=== PATIENT | female | born 1955 | race Caucasian/White ===

== ENCOUNTER → 2016-12-19 | Outpatient (CLI) | payer BC ==
[2016-12-19 17:04] LABS: BILIRUBIN,URINE NEGATIVE (NEG); CLARITY,URINE CLEAR (CLEAR); GLUCOSE, URINE (UA) NEGATIVE (NEG); LEUKOCYTE ESTERASE ,URINE MODERATE (NEG); NITRATE,URINE NEGATIVE (NEG); OCCULT BLOOD,URINE LARGE (NEG); PH,URINE 6.5 (5.0-8.5); PROTEIN,URINE 30 mg/dl (NEG); UROBILINOGEN,URINE 0.2 mg/dL (0.2)
[2016-12-19 17:22] LABS: BACTERIA,URINE FEW; RBC,URINE 20-30 /hpf; SQUAMOUS EPITHELIAL CELL,UR RARE; URINE SAMPLE TYPE CLEAN CATCH URINE; WBC,URINE 20-30
== END ==
LOC: MOB LAB 15:46
PROVIDERS: ATTEND Internal Medicine
DX: N39.0 Urinary tract infection, site not specified (principal)
CPT/HCPCS: 81001; 87088

== ENCOUNTER → 2016-12-21 | Outpatient (CLI) | payer BC ==
[2016-12-21 14:04] LABS: BLOOD UREA NITROGEN 17 mg/dL (7-22); BUN/CREATININE RATIO 18.88 (6-20); CALCIUM 9.6 mg/dL (8.7-10.7); CHLORIDE 106 meq/L (98-112); CREATININE 0.9 mg/dL (0.50-1.20); EST GLOMERULAR FILTRATION > 60 (>60 ml/min/1.73m(2)); GLUCOSE 105 mg/dL (78-110); POTASSIUM 4.3 meq/L (3.8-5.2); SODIUM 138 meq/L (135-145)
== END ==
LOC: LAB 13:38
PROVIDERS: ATTEND Internal Medicine
DX: E83.39 Other disorders of phosphorus metabolism (principal)
CPT/HCPCS: 36415; 80048; 84100

== ENCOUNTER → 2017-04-13 | Outpatient (CLI) | payer BC ==
[2017-04-13 12:12] LABS: BLOOD UREA NITROGEN 15 mg/dL (7-22); BUN/CREATININE RATIO 18.75 (6-20); CALCIUM 9.9 mg/dL (8.7-10.7); EST GLOMERULAR FILTRATION > 60 (>60 ml/min/1.73m(2))
== END ==
LOC: LAB 10:39
PROVIDERS: ATTEND Internal Medicine
DX: M81.0 Age-related osteoporosis without current pathological fracture (principal)
CPT/HCPCS: 36415; 80048; 83735; 84100

== ENCOUNTER → 2017-06-07 | Outpatient (CLI) | payer BC ==
--- NOTE | 2017-06-07 11:06 | DI ---
History: Status post right lumpectomy and radiation therapy for breast cancer Comparison: September 26, 2016. Findings: Moderate fibroglandular tissue bilaterally Scarring in the upper outer quadrant of the right breast consistent with patient's surgical history, and unchanged as compared with 2016 No dominant densities are formed lesions Minimal amount of scattered benign-appearing microcalcifications bilaterally, unchanged No skin thickening or nipple retraction No significant changes compared with the mammogram of September 26, 2016 Impression Direct 2, benign findings
== END ==
LOC: MAMMO 09:46
PROVIDERS: ATTEND Physician Assistant
DX: C50.411 Malignant neoplasm of upper-outer quadrant of right female breast (principal); Z92.3 Personal history of irradiation; Z98.890 Other specified postprocedural states
CPT/HCPCS: G0204